=== PATIENT | female | born 1930 | race Caucasian/White ===

== ENCOUNTER 2017-01-10 11:51 | Inpatient (IN) ==
[2017-01-10] MEDS ORDERED: ONDANSETRON 4 MG/2 ML INJECTION IVP ONE (12:21)
[2017-01-10] MEDS ORDERED: KETOROLAC 30 MG/ML INJECTION IVP ONE (12:21)
--- NOTE | 2017-01-10 12:26 | Emergency Department Report ---
Abdominal Pain HPI - General Chief Complaint: Abdominal Pain Stated Complaint: Chest/abd pain Time Seen by Provider: 01/10/17 12:21 Source: patient, EMS, RN notes reviewed, old records reviewed Mode of arrival: EMS Limitations: no limitations - History of Present Illness HPI narrative: 86yo woman presented to the ER by EMS for evaluation of abdominal pain. Pt sent from her alf for c/o epigastric pain that radiated into pts chest beginning at 1130 today. Has not had any N/V/d/c. No diaphoresis. Pt was given norco x1 prior to shipping her to the ER. ?has a h/o abdominal mass. MD complaint: abdominal pain Onset (ago): hour(s) Consistency: constant Location: epigastric Severity: severe Severity scale (1-10): 8 Quality: stabbing, sharp Radiation: chest Migration to: no migration Relieving factors: nothing Exacerbating factors: nothing Associated symptoms: denies other symptoms Treatments prior to arrival: prescription analgesics - Related Data Home Medications Medication Instructions Recorded Confirmed Acetaminophen [Acetaminophen Extra 500 mg PO Q4H PRN 12/16/16 01/10/17 Strength] Acetaminophen [Tylenol Arthritis] 650 mg PO TID 01/10/17 01/10/17 Previous Rx's Medication Instructions Recorded Bisacodyl EC TAB [Dulcolax] 5 mg PO DAILY PRN tab 01/17/17 Bisacodyl Supp [Dulcolax] 10 mg RECTALLY DAILY PRN 01/17/17 suppositor Milk of Magnesia [Mom] 30 ml PO DAILY PRN udc 01/17/17 Allergies Allergy/AdvReac Type Severity Reaction Status Date / Time No Known Allergies Allergy Verified 01/10/17 12:25 Review of Systems All systems: reviewed and negative except as stated Gastrointestinal: Reports: as per HPI, abdominal pain. Denies: nausea, vomiting , diarrhea, constipation, hematemesis, melena, hematochezia [facility] Patient Stated Medical History Other HEENT Yes: WEARS GLASSES Cardiac Arrhythmia Yes: AFIB Congestive Heart Failure Yes Hypertension Yes Valvular Heart Disease Yes Diabetes Mellitus Type 2 Yes Other Reproductive Yes: UTERINE MASS Clinic Medical History Chronic female pelvic pain (Inactive Medical) Surgical History: Denied by patient. - Social History Smoking status: Former smoker Physical Exam - Limitations Limitations: no limitations - General General appearance: alert, in no apparent distress - Normal Exams: Head:: Normocephalic without trauma Eyes:: Pupils are PERRLA w/ EOMI, No scleral icterus, irritation, or foreign bodies noted ENMT:: No facial trauma, nasal exudates, pharyngeal erythema, or exudates are noted Neck:: Full range of motion, without adenopathy Chest/Respirations:: Clear all fernandez, with good airflow, and symmetry bilaterally Cardiovascular:: Regular rate and rhythm, without murmur or gallop, Pulses 2+ all extremities, capillary refill, <2 seconds all extremities Lymphatic:: No lymphadenopathy Musculoskeletal:: No tenderness, or deformity noted, good range of motion Integumentary:: No rashes, hives, or bruising noted Neurological:: Patient is alert, and oriented, cranial nerves, motor/sensory/ cerebellar, exams w/o gross deficits Psychiatric:: Patient exhibits, appropriate attention - Abdominal Exam Abdominal exam: Present: soft, tenderness, normal bowel sounds. Absent: distention, guarding, rebound, rigidity, psoas sign, obturator sign, heel tap sign, Terrazas's sign, Rovsing's sign, tenderness at McBurney's Point, hernia Abdominal tenderness: Present: epigastrium, severe Course - Consultations Consultation #1: Hospitalist: Will admit for further eval/treatment. Requests 30ml/Kg bolus for sepsis. Time: 13:45 Abdominal Pain - [facility] Narrative Medical decision making narrative: Pt with numerous findings on CT abd/pelv and markers for sepsis. Contacted hospitalist for admission for further evaluation and referrals as indicated. - Differential Diagnosis Differential diagnosis: Likely: abdominal pain, calculus of kidney, constipation , diverticulitis, gastroenteritis, pancreatitis, small bowel obstruction - Medical Records Attestation: I reviewed the patient's medical records. - Lab Data Attestation: I reviewed the patient's lab results. Result diagrams: 01/16/17 04:10 01/16/17 04:10 - Radiology Data Attestation: I reviewed the patient's radiology results. CT abd/pelv: FINDINGS: Lower thorax: Bilateral pleural effusions are seen moderate on left small right. Bilateral lower lobe infiltrates are seen consistent with atelectasis. There is a small nodule noted within the left lower lobe measuring 3 mm on image #4 of series 3. ABDOMEN: Liver: Unremarkable. No mass. Gallbladder and bile ducts: Small stones or sludge are noted within the gallbladder. No ductal dilation. Pancreas: Unremarkable. No mass. No ductal dilation. Spleen: Unremarkable. No splenomegaly. Adrenals: Unremarkable. No mass. Kidneys and ureters: Unremarkable. No solid mass. No hydronephrosis. Stomach and bowel: Unremarkable. No obstruction. No mucosal thickening. Appendix: No findings to suggest acute appendicitis. Within PELVIS: Bladder: Unremarkable. No mass. Reproductive: There is a large mass noted within the pelvis in the area of the uterus this measuring 125 x 134 mm in the axial plane. This likely is a large fibroid uterus however, an ovarian neoplastic process cannot be excluded. In the cervix there is a large mass very heterogeneous measuring 80 x 60 mm. This is suspicious for cervical neoplasm. ABDOMEN and PELVIS: Intraperitoneal space: There is diffuse ascites in the abdomen and pelvis possibly due to the cervical mass that will be discussed below.. No free air. Bones/joints: No acute fracture. No dislocation. Soft tissues: Diffuse soft tissue edema is identified. Vasculature: Unremarkable. No abdominal aortic aneurysm. Lymph nodes: Unremarkable. No enlarged lymph nodes. IMPRESSION: Cervical mass and uterine mass. Ascites. Bilateral pleural effusions. Small left lower lobe nodule. Sludge or small stones in the gallbladder Disposition Clinical Impression: Cervical mass, Uterine mass Sepsis Qualifiers: Sepsis type: sepsis due to unspecified organism Qualified Code(s): A41.9 - Sepsis, unspecified organism Disposition: To [facility] Acute Care Condition: Stable Time of Disposition: 14:05 - Seen By: physician
[2017-01-10] MEDS: SALINE FLUSH 10ml SYRINGE IVF PRN (12:43)
[2017-01-10] MEDS ORDERED: SALINE FLUSH 10ml SYRINGE IVF PRN (12:48)
[2017-01-10] MEDS ORDERED: LEVOFLOXACIN PB 750 MG/150 ML BAG IV ONE (12:48)
[2017-01-10] MEDS ORDERED: IOHEXOL 300mg/ml 100ml INJECTION ONE (12:59)
[2017-01-10] MEDS ORDERED: SALINE FLUSH 10ml SYRINGE ONE (13:00)
[2017-01-10] MEDS ORDERED: NS 100 ML ONE (13:00)
[2017-01-10] MEDS ORDERED: NS 2,000 ML IV ONE (13:58)
[2017-01-10] MEDS ORDERED: VANCOMYCIN - PHARMACY CONSULT MC ONE (14:11)
--- NOTE | 2017-01-10 15:05 | History & Physical Report ---
History of Present Illness Date: 01/10/17 Chief complaint: Abdominal pain HPI: Anel Salas is a [facility] 86-year-old woman known to have CAD s/p recent cardiac cath when inpatient at [facility] with diffuse CAD noted and plans for future intervention, valvular heart disease s/p porcine aortic valve, afib, diastolic heart failure with recent exacerbation requiring aggressive inpatient diuresis at [facility] from 12/26-01.01 as well as a known uterine mass undergoing w/u with Dr. Elsa Sood. The patient is a very poor historian due to significant hearing loss and confusion. She is able to answer simple questions for me but cannot provide much history. I did extensively review her available records in the [facility] system from her recent admission. Per patient report, she has not yet had a biopsy done on her uterine mass although that is planned in the near future. She was brought in by EMS for acute onset of severe abdominal pain around 1130 am. She is feeling better now although still has some epigastric tenderness. She denies vomiting but did have some nausea. She has been residing at [facility] for U care since 01/01 when she discharged from [facility]. Her initial labs demonstrate a normal WBC but procalcitonin is elevated at 4.99 and despite stable hemodynamics her lactic acid returned at 4.1. Of note, she is diabetic and has been on metformin. She received a dose of IV levaquin in the ED as well as 500 cc saline bolus. She states her breathing has been stable since leaving the hospital, she has been eating and drinking normally. She denies chest pain, dyspnea, fevers, chills although when she exerts herself she does become dyspneic. [facility] records reviewed from recent admission and cardiac cath 12/30/2016 Catheterization Left Heart with Coronary Post-Op Diagnosis: MARIA VICTORIA Primary Surgeon: Wai Gutiérrez MD (Surgeon - Primary) Spanish Medical Interpreter: Hannah Estimated Blood Loss: minimal Specimens: none Findings: 1- mod/sev mid LAD disease 2- severe mid diagonal disease 3- severe prox LPDA disease 4- severe prox OM1 disease 5 - EF 65% 6- mean gradient through AV 20mm Hg Review of Systems - Constitutional Constitutional: Present: anorexia, fatigue, weakness. Absent: fever(s), headache(s), night sweats - EENMT Eyes: Absent: blurry vision, change in vision Ears: Present: other (hard of hearing ) Balance: Absent: vertigo, ataxia Nose: Absent: change in smell, pain Mouth/Throat: Absent: sore throat, changes in swallowing - Cardiovascular Cardiovascular: Present: dyspnea on exertion. Absent: chest pain, palpitations , syncope Rhythm: Present: regular rhythm Vascular: Present: pedal edema (trace with chronic venous stasis changes BLE) - Respiratory Respiratory: Present: dyspnea, dyspnea on exertion. Absent: hemoptysis - Gastrointestinal Gastrointestinal: Present: abdominal pain (epigastric primarily, improved currently ). Absent: change in bowel habits, change in stool character, constipation - Musculoskeletal Musculoskeletal: Absent: joint swelling, myalgias - Integumentary/Breasts Integumentary: Absent: alopecia, changing lesions - Neurological Neurological: Absent: abnormal movements, abnormal speech, dizziness, focal weakness - Psychiatric Psychiatric: Absent: anxiety, depression - Endocrine Endocrine: Absent: cold intolerance, heat intolerance, palpitations - Hematologic/Lymphatic Hematologic/Lymphatic: Absent: easy bleeding, easy bruising - Allergic/Immunologic Allergic/Immunologic: Absent: tongue swelling, itchy eyes, seasonal rhinorrhea [facility] Clinic Medical History CAD s/p CABG x 1 (SVG to RCA) Rheumatic valvular HD s/p tissue AVR (follows with Dr. Gutiérrez for cardiology care) Diastolic HF Atrial fibrillation Uterine mass Hypertension Dyslipidemia DMII on metformin chronically Iron Deficiency anemia Surgical History: CABG x1, tissue AVR Family History: Multiple siblings and parents with CAD. No history of malignancy she is aware of. - Social History Smoking status: Former smoker (remote, mild use) Substance use type: does not use Alcohol intake frequency: does not drink Housing: other (admitted from [facility]) Medications Home Medications Medication Instructions Recorded Confirmed Type Acetaminophen [Acetaminophen Extra 500 mg PO Q4H PRN 12/16/16 01/10/17 History Strength] Ferrous Sulfate [Iron] 325 mg PO BID 12/16/16 01/10/17 History Metformin [Glucophage] 500 mg PO HS 12/16/16 01/10/17 History Metoprolol Tartrate [Lopressor] 50 mg PO BID 12/16/16 01/10/17 History Acetaminophen [Tylenol Arthritis] 650 mg PO TID 01/10/17 01/10/17 History Aspirin 325 mg PO DAILY 01/10/17 01/10/17 History Furosemide [Lasix] 40 mg PO BID 01/10/17 01/10/17 History Hydrocodone/APAP 5/325 [[place] 1 tab PO Q8H PRN 01/10/17 01/10/17 History 5/325] Loperamide [Imodium] 2 mg PO TID PRN 01/10/17 01/10/17 History Metformin [Glucophage] 1,000 mg PO DAILY 01/10/17 01/10/17 History Potassium Chloride 10 meq PO BID 01/10/17 01/10/17 History Pravastatin [Pravachol] 20 mg PO DAILY 01/10/17 01/10/17 History Allergies Allergy/AdvReac Type Severity Reaction Status Date / Time No Known Allergies Allergy Verified 01/10/17 12:25 Exam Vital Signs: Pulse Rate 98 01/10/17 14:15 Respiratory Rate 16 01/10/17 14:15 Blood Pressure 110/59 01/10/17 14:47 Pulse Oximetry 95 01/10/17 14:15 Telemetry Rhythm: Sinus Rhythm - Constitutional Present: no acute distress, well nourished, well developed, cooperative - Routine HEENT Exam Head: Present: normocephalic, atraumatic. Absent: abrasion, laceration Eye: Present: EOMI, PERRL ENT: Present: mucous membranes moist, oropharynx clear - Routine Neck Exam Present: supple. Absent: JVD, carotid bruit - Routine Chest/Breast/Axilla Exam Chest wall: Absent: tenderness - Routine Respiratory Exam Present: CTA bilaterally, diminished air movement. Absent: wheezes, crackles - Routine Cardiovascular Exam Present: RRR, murmur (BRISSA heard best at the right carotid ) - Routine Abdominal Exam Present: soft, normoactive bowel sounds, tenderness (mild epigastric tenderness without rebound, guarding, rigidity), distended - Routine Extremities Exam Present: edema (trace BLE), pulses intact, normal capillary refill. Absent: clubbing - Routine Back/Spine/Pelvis Exam Back/Spine: Present: erythema (with chronic venous stasis changes ) - Routine Skin Exam Present: dry, warm. Absent: rash - Routine Neurological Exam Present: alert, normal speech. Absent: tremors, asterixis - Routine Psychiatric Exam Present: normal affect, cooperative Results - Labs CBC & Chem 7: 01/10/17 12:33 01/10/17 12:33 Labs: Procalcitonin 4.99 Lactic acid 4.1 Troponin ordered and pending Microbiology Results: Blood cultures drawn and pending. - Imaging and Cardiology CT scan - abdomen Additional comments: Cervical/uterine mass noted as well as small pulmonary nodule GB sludging Ascites Bilateral pleural effusions Full radiology report pending at this time. Assessment and Plan (1) Sepsis Problem details: of unclear etiology, ? HCAP versus possible GB etiology Current visit: Yes Status: Acute (2) Abdominal pain Problem details: acute, improved with supportive care, epigastric, ? relation to uterine mass versus GB etiology Current visit: Yes Status: Acute (3) Diastolic heart failure due to valvular disease Current visit: Yes Status: Acute (4) Cervical mass Problem details: Pending further evaluation with Dr. Elsa Sood Current visit: Yes Status: Acute (5) Uterine mass Problem details: Pending further evaluation with Dr. Elsa Sood Current visit: Yes Status: Acute (6) CAD (coronary artery disease) Current visit: Yes Status: Chronic (7) H/O aortic valve replacement with porcine valve Current visit: Yes Status: Chronic (8) Chronic a-fib Problem details: On ASA 325 mg and rate controlled Current visit: Yes Status: Chronic (9) Diabetes mellitus Problem details: Managed on metformin OP Current visit: Yes Status: Chronic Assessment and Plan: Assessment: Sepsis of unclear etiology; hemodynamics are stable but lactic acid 4.1, procalcitonin grossly elevated At risk for HCAP with recent inpatient admission at [facility] Acute abdominal pain, improved in ED, unclear if related to GB pathology versus uterine/cervical mass Known CAD with recent cardiac cath 12/[address] Gutiérrez Diastolic HF with recent decompensation requiring IV diuresis when admitted in [facility] at [facility] Valvular HD with porcine AVR Chronic afib, on ASA 325 mg and rate controlled Uterine/cervical mass recently diagnosed pending biopsy and further w/u with Dr. Sood Plan/Recommendations: Admit to medical floor with telemetry Hold further IVF after 500 cc bolus unless hypotensive Check troponin to ensure no occult cardiac cause of her presentation Broaden antibiotics to vancomycin/zosyn Continue home medications including cardiac medications and diuretics given recent decompensated HF Await final read on CTAP May need to involve Dr. Sood during her inpatient stay for further evaluation of uterine/cervical mass RUQ ultrasound to furthe evaluation GB pathology Add hepatic panel to labs for surveillance Renal panel, CBC, Mg with AM labs Serial lactic acid for monitoring Will return her care to Dr. Angel, PCP, after her hospitalization. DVT Prophylaxis: Lovenox GI Prophylaxis: Pepcid Resuscitation Status: Full Code Sepsis Assessment - Evaluation SIRS Criteria: acute mental status change, pulse > or equal to 90 beats/minute Severe Sepsis: lactate > or equal to 2.0 mg/dl Septic Shock: Lactate > 4 mg/dL Hospital Course Summary Disclaimer: The visit summary below is not to be considered part of the above Progress Note. Hospital Course: 01/10/17 15:35 Assessment: Sepsis of unclear etiology; hemodynamics are stable but lactic acid 4.1, procalcitonin grossly elevated At risk for HCAP with recent inpatient admission at [facility] Acute abdominal pain, improved in ED, unclear if related to GB pathology versus uterine/cervical mass Known CAD with recent cardiac cath 12/[address] Gutiérrez Diastolic HF with recent decompensation requiring IV diuresis when admitted in [facility] at [facility] Valvular HD with porcine AVR Chronic afib, on ASA 325 mg and rate controlled Uterine/cervical mass recently diagnosed pending biopsy and further w/u with Dr. Sood Plan/Recommendations: Admit to medical floor with telemetry Hold further IVF after 500 cc bolus unless hypotensive Check troponin to ensure no occult cardiac cause of her presentation Broaden antibiotics to vancomycin/zosyn Continue home medications including cardiac medications and diuretics given recent decompensated HF Await final read on CTAP May need to involve Dr. Sood during her inpatient stay for further evaluation of uterine/cervical mass RUQ ultrasound to furthe evaluation GB pathology Add hepatic panel to labs for surveillance Renal panel, CBC, Mg with AM labs Serial lactic acid for monitoring Will return her care to Dr. Angel, PCP, after her hospitalization.
[2017-01-10] MEDS ORDERED: Bisacodyl EC TAB 5 MG TABLET PO PRN (15:40)
[2017-01-10] MEDS ORDERED: MORPHINE SULFATE 4mg INJECTION IVP PRN (15:40)
[2017-01-10] MEDS: NS 1,000 ML IV SCH ×2 (16:35→16:48)
[2017-01-10] MEDS: CEFEPIME 1 GM in NS 100 ML IV SCH ×2 (17:18→22:37)
[2017-01-10] MEDS: ENOXAPARIN 40 MG/0.4 ML INJECTION SQ SCH (21:11)
[2017-01-11] MEDS: ACETAMINOPHEN 325 MG TABLET PO PRN (01:55)
[2017-01-11] MEDS: CEFEPIME 1 GM in NS 100 ML IV SCH ×3 (03:42→20:32)
[2017-01-11] MEDS: NS 1,000 ML IV SCH (04:38)
[2017-01-11] MEDS ORDERED: FUROSEMIDE 20 MG/2 ML INJECTION IVP ONE ×2 (05:48→11:00)
[2017-01-11] MEDS ORDERED: MAGNESIUM SULFATE 1gm PREMIX 1 GM/100 ML BAG IV SCH (07:49)
[2017-01-11] MEDS: ONDANSETRON 4 MG/2 ML INJECTION IVP PRN (08:19)
[2017-01-11] MEDS: FERROUS SULFATE 324 MG TABLET PO SCH ×2 (08:43→17:50)
[2017-01-11] MEDS: ASPIRIN 325 MG TABLET PO SCH (08:43)
[2017-01-11] MEDS: ENOXAPARIN 40 MG/0.4 ML INJECTION SQ SCH (08:43)
[2017-01-11] MEDS: MAGNESIUM SULFATE 1gm PREMIX 1 GM/100 ML BAG IV SCH ×2 (08:51→13:16)
--- NOTE | 2017-01-11 09:24 | XRay Report ---
Indication: acute onset dyspnea PROCEDURE: XR chest 1V: Encounter: Initial Comparison: None Findings: Patchy airspace disease in both lower lobes. Pulmonary vascular prominence with small effusions. No pneumothorax. Cardiac silhouette is moderately enlarged. Pulmonary vascularity is congested. Prior sternotomy. Impression: Moderate pulmonary edema, possibly due to CHF. Underlying pneumonia, aspiration or atelectasis cannot be excluded in the lung bases. There is a preliminary report by [facility]. .
--- NOTE | 2017-01-11 09:29 | Pharmacy Consult-Antibiotics ---
Pharmacy Consult-Vancomycin - Laboratory Information WBC 9.3 T/MM3 (4.5-11.0) 01/11/17 04:13 BUN 34.0 MG/DL (7-17) H 01/11/17 04:13 Creatinine 1.0 MG/DL (0.7-1.2) 01/11/17 04:13 Procalcitonin 4.99 NG/ML H* 01/10/17 12:33 - Consult Information VANCOMYCIN CONSULT: Dx: Sepsis of unclear etiology, ? HCAP versus possible GB etiology Current Renal Fx: S Cr = 1.0 *mg/dl. Estimated Cr Cl ~ 40 mL.min. I will change the Vancomycin from 1,250 mg iv 1.000 mg IV q18hrs to obtain a trough between 15-20 mcg.mL. The pharmacy sill continue to monitor and adjust regimen to maintain therapeutic levels. Thank you for the Vancomycin Protocol, Julio Cesar Kumar, Pharmacist. .
--- NOTE | 2017-01-11 10:16 | CT Scan Report ---
Indication: Abd pain with hypoactive BS PROCEDURE: CT abdomen pelvis w con: Encounter: Initial Comparison: None Technique: Axial CT images were performed through the abdomen and pelvis after the administration of intravenous contrast. Coronal and sagittal two-dimensional reformats. Automated Exposure Control and Iterative Reconstruction dose reducing techniques were utilized. Contrast: Omnipaque 300 89 mL Findings: Small bilateral pleural effusions. 7 mm subpleural right middle lobe pulmonary nodule. Heart is enlarged. Subcutaneous edema. Liver is fatty infiltrated. Moderate ascites. The gallbladder is shows a small amount of sludge. The spleen, pancreas and adrenal glands are within normal limits. The kidneys are normal. Bladder is grossly normal. There is a irregular heterogeneously enhancing mass occupying the majority of the pelvis. This appears to arise from the uterus. This measures approximately 13 x 11 x 13 cm in size. There is also an extension of this mass or a separate mass in the area of the cervix seen on axial image #80 measuring 5.8 cm in diameter. No evidence of a bowel obstruction. No obvious omental thickening or nodularity. There are scattered small retroperitoneal nodes present. Bone windows show a 1 cm lytic lesion in the T7 vertebra centrally. Diffuse subcutaneous edema consistent with anasarca. Impression: 1. Large heterogeneous pelvic mass or masses suspicious for carcinoma that could be arising from the uterus, endometrium or cervix. Ovarian malignancy is also possible. There is diffuse ascites raising concern for peritoneal metastatic disease. There is also a pulmonary nodule and bone lesion that could represent other sites of metastatic disease. Oncology evaluation is recommended. 2. Anasarca There is a preliminary report by [facility]. .
[2017-01-11] MEDS: INSULIN ASPART 100unit/ml INJECTION SQ PRN ×2 (10:53→18:15)
--- NOTE | 2017-01-11 11:40 | Progress Note ---
- Date 01/11/17 Subjective: Desaturations overnight after IVF for sepsis protocol. Improved after a dose of IV lasix. Lactic acid slowly clearing. RUQ ultrasound still pending but abdominal pain has resolved this AM. Afebrile overnight. Very hard of hearing and doesn't have her hearing aid batteries but denies pain , fevers, chills, dyspnea currently. Objective Vital signs: Temperature 96.0 F L 01/11/17 08:30 Pulse Rate 108 H 01/11/17 08:30 Respiratory Rate 13 01/11/17 08:30 Blood Pressure 147/69 H 01/11/17 08:30 Pulse Oximetry 97 01/11/17 08:30 Rhythm: Atrial Fibrillation with Normal Ventricular Rate Height/Weight/BMI: Height 1.63 m Weight 72.3 kg Body Mass Index 26.5 - Constitutional Present: no acute distress - Routine HEENT Exam Head: Present: normocephalic, atraumatic Eye: Present: EOMI, PERRL ENT: Present: mucous membranes moist, oropharynx clear - Routine Respiratory Exam Present: decreased breath sounds, crackles (right base), diminished air movement (primarily at bases). Absent: accessory muscle use - Routine Cardiovascular Exam Present: RRR, murmur (BRISSA) - Routine Abdominal Exam Present: soft, non tender, distended. Absent: rebound, guarding, rigid - Routine Extremities Exam Present: edema (trace BLE), pulses intact, normal capillary refill - Routine Skin Exam Present: dry, warm. Absent: rash - Routine Neurological Exam Present: alert, normal speech Results - Labs CBC & Chem 7: 01/11/17 04:13 01/11/17 04:13 - ABG Interpretation ABG results: 01/11/17 06:05 ABG pH 7.350 ABG pCO2 41 ABG pO2 72 L ABG HCO3 23 ABG Total CO2 23.9 ABG O2 Saturation 93.0 L ABG Base Excess -2.9 L - ECG Data Tracing #2 I reviewed this ECG and interpreted as documented below: Arrhythmias present: afib/aflutter (with RVR ) - Imaging and Cardiology Chest x-ray Status: image reviewed by me Additional comments: Date of Exam: 01/11/17 Ordering Provider: Best Whitney MD Type of Exam(s): XR chest 1V Reason for Exam(s): acute onset dyspnea Indication: acute onset dyspnea PROCEDURE: XR chest 1V: Encounter: Initial Comparison: None Findings: Patchy airspace disease in both lower lobes. Pulmonary vascular prominence with small effusions. No pneumothorax. Cardiac silhouette is moderately enlarged. Pulmonary vascularity is congested. Prior sternotomy. Impression: Moderate pulmonary edema, possibly due to CHF. Underlying pneumonia, aspiration or atelectasis cannot be excluded in the lung bases. There is a preliminary report by virtual radiologic. Assessment and Plan (1) Sepsis Problem details: of unclear etiology, ? HCAP versus possible GB etiology Current visit: Yes Status: Acute (2) Abdominal pain Problem details: acute, improved with supportive care, epigastric, ? relation to uterine mass versus GB etiology Current visit: Yes Status: Acute (3) Diastolic heart failure due to valvular disease Current visit: Yes Status: Acute (4) Cervical mass Problem details: Pending further evaluation with Dr. Elsa Sood Current visit: Yes Status: Acute (5) Uterine mass Problem details: Pending further evaluation with Dr. Elsa Sood Current visit: Yes Status: Acute (6) CAD (coronary artery disease) Current visit: Yes Status: Chronic (7) H/O aortic valve replacement with porcine valve Current visit: Yes Status: Chronic (8) Chronic a-fib Problem details: On ASA 325 mg and rate controlled Current visit: Yes Status: Chronic (9) Diabetes mellitus Problem details: Managed on metformin OP Current visit: Yes Status: Chronic Assessment and Plan: Assessment: Sepsis of unclear etiology; lactic acid 4.1, procalcitonin grossly elevated at admission At risk for HCAP with recent inpatient admission at [facility]; no imaging evidence of infiltrate however Acute abdominal pain, improved in ED, unclear if related to GB pathology versus uterine/cervical mass --> may have occult GI infection; blood cultures still pending as is urine culture Known CAD with recent cardiac cath 12/[address] Gutiérrez --> troponin negative on admission and this AM Diastolic HF with recent decompensation requiring IV diuresis when admitted in [place] at [facility] --> recurrent decompensation overnight 01/10 after modest fluid for sepsis with desaturation, CXR with pulm edema Valvular HD with porcine AVR Chronic afib, on ASA 325 mg and rate controlled typically Uterine/cervical mass recently diagnosed pending biopsy and further w/u with Dr. Sood Plan/Recommendations: Continue telemetry today Hold further IVF today and monitor lactic acid levels; trending down, ? metformin versus poor hepatic clearance Await RUQ ultrasound results for further evaluation of liver and GB Hold vanco and levaquin and continue zosyn today for intra-abdominal coverage; no evidence of HCAP on imaging Continue home medications including cardiac medications and diuretics given recent decompensated HF --> will give an additional 20 mg IV lasix today at noon for further diuresis Monitor strict I/Os and daily weight s May need to involve Dr. Sood during her inpatient stay for further evaluation of uterine/cervical mass Renal panel, CBC, Mg with AM labs Discussed with bedside RN. Hospital Course Summary Disclaimer: The visit summary below is not to be considered part of the above Progress Note. Hospital Course: 01/10/17 15:35 [place]--Admission Assessment: Sepsis of unclear etiology; hemodynamics are stable but lactic acid 4.1, procalcitonin grossly elevated At risk for HCAP with recent inpatient admission at [facility] Acute abdominal pain, improved in ED, unclear if related to GB pathology versus uterine/cervical mass Known CAD with recent cardiac cath 12/[address] Gutiérrez Diastolic HF with recent decompensation requiring IV diuresis when admitted in [place] at [facility] Valvular HD with porcine AVR Chronic afib, on ASA 325 mg and rate controlled Uterine/cervical mass recently diagnosed pending biopsy and further w/u with Dr. Sood Plan/Recommendations: Admit to medical floor with telemetry Hold further IVF after 500 cc bolus unless hypotensive Check troponin to ensure no occult cardiac cause of her presentation Broaden antibiotics to vancomycin/zosyn Continue home medications including cardiac medications and diuretics given recent decompensated HF Await final read on CTAP May need to involve Dr. Sood during her inpatient stay for further evaluation of uterine/cervical mass RUQ ultrasound to furthe evaluation GB pathology Add hepatic panel to labs for surveillance Renal panel, CBC, Mg with AM labs Serial lactic acid for monitoring Will return her care to Dr. Angel, PCP, after her hospitalization. 01/11/17 11:46 [place] Continue telemetry today Hold further IVF today and monitor lactic acid levels; trending down, ? metformin versus poor hepatic clearance Await RUQ ultrasound results for further evaluation of liver and GB Hold vanco and levaquin and continue zosyn today for intra-abdominal coverage; no evidence of HCAP on imaging Continue home medications including cardiac medications and diuretics given recent decompensated HF --> will give an additional 20 mg IV lasix today at noon for further diuresis Monitor strict I/Os and daily weight s May need to involve Dr. Sood during her inpatient stay for further evaluation of uterine/cervical mass Renal panel, CBC, Mg with AM labs
[2017-01-11] MEDS: HYDROCODONE/APAP 5mg/325mg TABLET PO PRN ×2 (12:32→23:19)
[2017-01-11] MEDS: PRAVASTATIN 20 MG TABLET PO SCH (20:34)
[2017-01-12] MEDS: CEFEPIME 1 GM in NS 100 ML IV SCH ×3 (04:18→20:09)
[2017-01-12] MEDS: ACETAMINOPHEN 325 MG TABLET PO PRN ×2 (04:59→20:09)
[2017-01-12] MEDS: ASPIRIN 325 MG TABLET PO SCH (08:24)
[2017-01-12] MEDS: ENOXAPARIN 40 MG/0.4 ML INJECTION SQ SCH (08:24)
[2017-01-12] MEDS: FERROUS SULFATE 324 MG TABLET PO SCH ×2 (08:25→17:31)
[2017-01-12] MEDS: POLYETHYL GLYCOL 3350 17gm PACKET PO SCH (08:38)
--- NOTE | 2017-01-12 08:42 | Progress Note ---
<Maria Luisa Penn V - Last Filed: 01/12/17 08:37> - Date 01/12/17 Subjective: Mrs Salas is seen today in follow up while eating breakfast. She is currently on 3 liters of oxygen and denies feeling short of breath. Denies having pain in her chest pain or abdomen on exam. Afebrile, vital signs normal. Objective Vital signs: Temperature 96.3 F L 01/12/17 08:09 Pulse Rate 76 01/12/17 08:09 Respiratory Rate 14 01/12/17 08:09 Blood Pressure 121/69 01/12/17 08:09 Pulse Oximetry 93 01/12/17 08:09 Height/Weight/BMI: Height 1.63 m Weight 72.3 kg Body Mass Index 26.5 - Constitutional Present: no acute distress, well nourished, well developed - Routine HEENT Exam Eye: Present: EOMI ENT: Present: mucous membranes moist, dentition normal - Routine Respiratory Exam Absent: wheezes Comments: Crackles in bilateral bases posteriorly - Routine Cardiovascular Exam Present: RRR, S1, S2, murmur - Routine Abdominal Exam Present: soft, normoactive bowel sounds, non distended. Absent: tenderness - Routine Extremities Exam Present: full ROM - Routine Skin Exam Present: intact, dry, warm - Routine Neurological Exam Present: alert, oriented X3, CN II-XII intact, moving all extremities - Routine Lymphatic Exam Lymphatic: Absent: adenopathy - Routine Psychiatric Exam Present: normal affect, cooperative Results - Labs CBC & Chem 7: 01/12/17 03:56 01/12/17 03:56 - ABG Interpretation ABG results: 01/11/17 06:05 ABG pH 7.350 ABG pCO2 41 ABG pO2 72 L ABG HCO3 23 ABG Total CO2 23.9 ABG O2 Saturation 93.0 L ABG Base Excess -2.9 L Assessment and Plan (1) Cervical mass Current visit: Yes Status: Acute (2) Uterine mass Problem details: Pending further evaluation with Dr. Elsa Sood Current visit: Yes Status: Acute (3) Diastolic heart failure due to valvular disease Current visit: Yes Status: Acute (4) CAD (coronary artery disease) Current visit: Yes Status: Chronic (5) H/O aortic valve replacement with porcine valve Current visit: Yes Status: Chronic (6) Chronic a-fib Problem details: On ASA 325 mg and rate controlled Current visit: Yes Status: Chronic (7) Diabetes mellitus Problem details: Managed on metformin OP Current visit: Yes Status: Chronic (8) Sepsis Problem details: of unclear etiology, ? HCAP versus possible GB etiology Current visit: Yes Status: Acute (9) Abdominal pain Problem details: acute, improved with supportive care, epigastric, ? relation to uterine mass versus GB etiology Current visit: Yes Status: Acute Assessment and Plan: Assessment: Sepsis of unclear etiology; lactic acid 4.1, procalcitonin grossly elevated at admission At risk for HCAP with recent inpatient admission at [facility]; no imaging evidence of infiltrate however Acute abdominal pain, improved in ED, unclear if related to GB pathology versus uterine/cervical mass --> may have occult GI infection; blood cultures still pending as is urine culture Known CAD with recent cardiac cath 12/[address] Gutiérrez --> troponin negative on admission and this AM Diastolic HF with recent decompensation requiring IV diuresis when admitted in [place] at [facility] --> recurrent decompensation overnight 01/10 after modest fluid for sepsis with desaturation, CXR with pulm edema Valvular HD with porcine AVR Chronic afib, on ASA 325 mg and rate controlled typically Uterine/cervical mass recently diagnosed pending biopsy and further w/u with Dr. Sood Plan Awaiting Abdominal sonogram results for further evaluation. Continue on Zosyn IV for intra-abdominal coverage. Lactate has trended to normal. Was given a one-time dose of Lasix IV yesterday. Given crackles and increased weight, will give another one time dose today. Hyperkalemia noted on labs, although specimen was hemolyzed. We will follow. Hgb decreased to 7.8. Dr Sood was consulted for evaluation of pelvic mass however she does not have [place]ile[place] [facility] Will discuss with attending, consult -vs- Outpt follow up. Add Miralax and MOM for bowel motivation Will discuss further with attending Hospital Course Summary Disclaimer: The visit summary below is not to be considered part of the above Progress Note. Hospital Course: 01/10/17 15:35 [place]--Admission Assessment: Sepsis of unclear etiology; hemodynamics are stable but lactic acid 4.1, procalcitonin grossly elevated At risk for HCAP with recent inpatient admission at [facility] Acute abdominal pain, improved in ED, unclear if related to GB pathology versus uterine/cervical mass Known CAD with recent cardiac cath 12/[address] Gutiérrez Diastolic HF with recent decompensation requiring IV diuresis when admitted in [place] at [facility] Valvular HD with porcine AVR Chronic afib, on ASA 325 mg and rate controlled Uterine/cervical mass recently diagnosed pending biopsy and further w/u with Dr. Sood Plan/Recommendations: Admit to medical floor with telemetry Hold further IVF after 500 cc bolus unless hypotensive Check troponin to ensure no occult cardiac cause of her presentation Broaden antibiotics to vancomycin/zosyn Continue home medications including cardiac medications and diuretics given recent decompensated HF Await final read on CTAP May need to involve Dr. Sood during her inpatient stay for further evaluation of uterine/cervical mass RUQ ultrasound to furthe evaluation GB pathology Add hepatic panel to labs for surveillance Renal panel, CBC, Mg with AM labs Serial lactic acid for monitoring Will return her care to Dr. Angel, PCP, after her hospitalization. 01/11/17 11:46 [place] Continue telemetry today Hold further IVF today and monitor lactic acid levels; trending down, ? metformin versus poor hepatic clearance Await RUQ ultrasound results for further evaluation of liver and GB Hold vanco and levaquin and continue zosyn today for intra-abdominal coverage; no evidence of HCAP on imaging Continue home medications including cardiac medications and diuretics given recent decompensated HF --> will give an additional 20 mg IV lasix today at noon for further diuresis Monitor strict I/Os and daily weight s May need to involve Dr. Sood during her inpatient stay for further evaluation of uterine/cervical mass Renal panel, CBC, Mg with AM labs 01/12/17 Plan Awaiting Abdominal sonogram results for further evaluation. Continue on Zosyn IV for intra-abdominal coverage. Lactate has trended to normal. Was given a one-time dose of Lasix IV yesterday. Given crackles and increased weight, will give another one time dose today. Hyperkalemia noted on labs, although specimen was hemolyzed. We will follow. Hgb decreased to 7.8. Dr Sood was consulted for evaluation of pelvic mass however she does not have Privileges [place] [facility] Will discuss with attending, consult -vs- Outpt follow up. Add Miralax and MOM for bowel motivation Will discuss further with attending <Flower Hou - Last Filed: 01/12/17 17:09> - Date 01/12/17 Objective Vital signs: Results - Labs CBC & Chem 7: 01/12/17 03:56 01/12/17 03:56 - ABG Interpretation ABG results: Assessment and Plan (1) Abdominal pain Problem details: acute, improved with supportive care, epigastric, ? relation to uterine mass versus GB etiology Current visit: Yes Status: Acute (2) Sepsis Problem details: of unclear etiology, ? HCAP versus possible GB etiology Current visit: Yes Status: Acute (3) Uterine mass Problem details: Pending further evaluation with Dr. Elsa Sood Current visit: Yes Status: Acute (4) Diastolic heart failure due to valvular disease Current visit: Yes Status: Acute Assessment and Plan: I have independently evaluated and examined this patient. I reviewed the chart, the patient's history, and the [employer]/PA's documented findings as above. We discussed and formulated the assessment and plan as above with additions as below: Bilious emesis reported yesterday by nursing that patient maintaining good oral intake today. Oxygen was titrated off yesterday by resumed overnight, currently on 2 L and patient denies dyspnea. She reports abdominal pain is gone and reports that it was terrible when she came in. Daly catheter in place, denies dyspnea or pain at present. Very hard of hearing but NAD Respirations nonlabored, breath sounds clear, no wheezing/rhonchi anteriorly Irregular rhythm Abdomen is obese, soft, bowel sounds present; no tenderness on palpation Gallbladder sonogram reviewed by myself-no evidence of acute cholecystitis although gallstones are present Chest x-ray from yesterday also reviewed-increased vascular markings. Lytic lesion T7 noted on initial CT scan in addition to anasarca and ascites/ pelvic mass. Continue diuresis. Weight up nearly 3 kg from admission-resume home dose furosemide in addition to supplemental doses as needed. PT/OT Etiology of lactic acidosis is unclear, renal function should support use of metformin but cannot exclude metformin induced lactic acidosis. Blood sugars modestly elevated with metformin on hold. Blood cultures negative, no clear indication of acute infection at present. Outpatient follow-up with [facility] [employer] oncology. DVT Prophylaxis: Lovenox Resuscitation Status: Full Code Hospital Course Summary Disclaimer: The visit summary below is not to be considered part of the above Progress Note.
[2017-01-12] MEDS ORDERED: POLYETHYL. GLYCOL 3350 BOTTLE 238 GM PO SCH (09:00)
[2017-01-12] MEDS ORDERED: LEVOFLOXACIN PB 750 MG/150 ML BAG IV SCH (09:00)
--- NOTE | 2017-01-12 10:53 | Ultrasound Report ---
Indication: acute abdominal pain, GB sludging on CTAP PROCEDURE: US abdomen limited: Encounter: Initial Comparison: None. FINDINGS: The gallbladder is thin-walled and nondistended with mobile echogenic gallstones. CBD is normal measuring 4.2 mm. No sonographic Terrazas's sign. The pancreas is largely obscured by bowel gas. Visualized portions of the pancreas are unremarkable. The liver is homogeneous in echotexture without focal abnormality. Color flow Doppler imaging confirms flow within the portal vein is in the appropriate direction.. The IVC is unremarkable. The hepatic veins are patent. There is a small amount of relatively simple appearing ascites. The right kidney is unremarkable measuring 9.5 cm in length. IMPRESSION: Small amount of simple ascites. Cholelithiasis without evidence for cholecystitis. .
[2017-01-12] MEDS: INSULIN ASPART 100unit/ml INJECTION SQ PRN ×2 (11:47→15:40)
[2017-01-12] MEDS ORDERED: FUROSEMIDE 20 MG/2 ML INJECTION IVP ONE (17:08)
[2017-01-12] MEDS: SALINE FLUSH 10ml SYRINGE IVF PRN (17:30)
[2017-01-12] MEDS: PRAVASTATIN 20 MG TABLET PO SCH (20:09)
[2017-01-13] MEDS ORDERED: NS FLUSH BAG 500ml IV PRN (04:13)
[2017-01-13] MEDS: SALINE FLUSH 10ml SYRINGE IVF PRN ×3 (04:34→22:14)
[2017-01-13] MEDS: CEFEPIME 1 GM in NS 100 ML IV SCH ×3 (04:34→20:21)
[2017-01-13] MEDS: FUROSEMIDE 40 MG TABLET PO SCH ×2 (09:18→13:40)
[2017-01-13] MEDS: FERROUS SULFATE 324 MG TABLET PO SCH ×2 (09:18→17:08)
[2017-01-13] MEDS: ENOXAPARIN 40 MG/0.4 ML INJECTION SQ SCH (09:18)
[2017-01-13] MEDS: POLYETHYL GLYCOL 3350 17gm PACKET PO SCH (09:19)
[2017-01-13] MEDS: ASPIRIN 325 MG TABLET PO SCH (09:19)
[2017-01-13] MEDS: ACETAMINOPHEN 325 MG TABLET PO PRN ×2 (11:44→21:27)
[2017-01-13] MEDS: INSULIN ASPART 100unit/ml INJECTION SQ PRN ×4 (12:00→21:28)
--- NOTE | 2017-01-13 14:50 | Progress Note ---
<Angelina Roland - Last Filed: 01/13/17 14:57> - Date 01/13/17 Subjective: Patient seen in follow up today. She reports she is doing better. No CP, SOA, n/v, or abdominal pain. Reports her appetite is "so-so." Overall, doing well with no complaints at the present time. Objective Vital signs: Temperature 97.5 F 01/13/17 08:00 Pulse Rate 90 01/13/17 08:00 Respiratory Rate 18 01/13/17 08:00 Blood Pressure 118/72 01/13/17 08:00 Pulse Oximetry 95 01/13/17 08:00 Rhythm: Atrial Fibrillation with Normal Ventricular Rate Height/Weight/BMI: Height 1.63 m Weight 75 kg Body Mass Index 26.5 - Constitutional Present: well nourished, well developed, obese - Routine Respiratory Exam Present: decreased breath sounds (LLL ), CTA bilaterally. Absent: wheezes - Routine Cardiovascular Exam Present: RRR, murmur - Routine Abdominal Exam Present: normoactive bowel sounds. Absent: tenderness Comments: abdomen is large and firm (likely d/t anasarca) - no tenderness. - Routine Extremities Exam Present: no edema (no edema of feet/ankles), normal capillary refill - Routine Skin Exam Present: dry, warm - Routine Neurological Exam Present: alert, moving all extremities - Routine Lymphatic Exam Lymphatic: Absent: adenopathy - Routine Psychiatric Exam Present: normal affect, cooperative Results - Labs CBC & Chem 7: 01/13/17 05:21 01/13/17 07:12 Labs: Laboratory Tests 01/13/17 05:21 B-Natriuretic Peptide [id number] H Assessment and Plan (1) Uterine mass Problem details: Pending further evaluation with Dr. Elsa Sood Current visit: Yes Status: Acute (2) Diastolic heart failure due to valvular disease Current visit: Yes Status: Acute (3) Sepsis Problem details: of unclear etiology, ? HCAP versus possible GB etiology Current visit: Yes Status: Acute (4) Abdominal pain Problem details: acute, improved with supportive care, epigastric, ? relation to uterine mass versus GB etiology Current visit: Yes Status: Acute Assessment and Plan: Assessment Sepsis of unclear etiology; lactic acid 4.1, procalcitonin grossly elevated at admission Acute abdominal pain, improved in ED, unclear if related to GB pathology versus uterine/cervical mass Known CAD with recent cardiac cath 12/[address] Gutiérrez Diastolic HF --> recurrent decompensation overnight 01/10 after modest fluid for sepsis with desaturation, CXR with pulm edema Valvular HD with porcine AVR Chronic afib, on ASA 325 mg and rate controlled typically Uterine/cervical mass recently diagnosed pending biopsy and further w/u with Dr. Sood Hyperkalemia -POA Plan Potassium is coming down. Her home potassium is on hold. Continues on home Lasix dose of 40 mg BID. Weight is up 5 kg since admission. Creatinine has gradually increased since admission. Defer tx plan to Dr. Hou. Abdominal pain has resolved. No clear etiology for her acute pain was identified. Dr. Hou to talk with family re: her abdominal mass. There apparently has been some confusion on the plan of care. Given her findings on CT, along with her age and cardiac status, she would be a candidate for palliative care. Hospital Course Summary Disclaimer: The visit summary below is not to be considered part of the above Progress Note. Hospital Course: 01/10/17 15:35 [place]--Admission Assessment: Sepsis of unclear etiology; hemodynamics are stable but lactic acid 4.1, procalcitonin grossly elevated At risk for HCAP with recent inpatient admission at [facility] Acute abdominal pain, improved in ED, unclear if related to GB pathology versus uterine/cervical mass Known CAD with recent cardiac cath 12/[address] Gutiérrez Diastolic HF with recent decompensation requiring IV diuresis when admitted in [place] at [facility] Valvular HD with porcine AVR Chronic afib, on ASA 325 mg and rate controlled Uterine/cervical mass recently diagnosed pending biopsy and further w/u with Dr. Sood Plan/Recommendations: Admit to medical floor with telemetry Hold further IVF after 500 cc bolus unless hypotensive Check troponin to ensure no occult cardiac cause of her presentation Broaden antibiotics to vancomycin/zosyn Continue home medications including cardiac medications and diuretics given recent decompensated HF Await final read on CTAP May need to involve Dr. Sood during her inpatient stay for further evaluation of uterine/cervical mass RUQ ultrasound to furthe evaluation GB pathology Add hepatic panel to labs for surveillance Renal panel, CBC, Mg with AM labs Serial lactic acid for monitoring Will return her care to Dr. Angel, PCP, after her hospitalization. 01/11/17 11:46 [place] Continue telemetry today Hold further IVF today and monitor lactic acid levels; trending down, ? metformin versus poor hepatic clearance Await RUQ ultrasound results for further evaluation of liver and GB Hold vanco and levaquin and continue zosyn today for intra-abdominal coverage; no evidence of HCAP on imaging Continue home medications including cardiac medications and diuretics given recent decompensated HF --> will give an additional 20 mg IV lasix today at noon for further diuresis Monitor strict I/Os and daily weight s May need to involve Dr. Sood during her inpatient stay for further evaluation of uterine/cervical mass Renal panel, CBC, Mg with AM labs 01/12/17 Awaiting Abdominal sonogram results for further evaluation. Continue on Zosyn IV for intra-abdominal coverage. Lactate has trended to normal. Was given a one-time dose of Lasix IV yesterday. Given crackles and increased weight, will give another one time dose today. Hyperkalemia noted on labs, although specimen was hemolyzed. We will follow. Hgb decreased to 7.8. Dr Sood was consulted for evaluation of pelvic mass however she does not have Privileges at [facility]. Will discuss with attending, consult -vs- Outpt follow up. Add Miralax and MOM for bowel motivation Will discuss further with attending 01/13/17 15:15 Potassium is coming down. Her home potassium is on hold. Continues on home Lasix dose of 40 mg BID. Weight is up 5 kg since admission. Creatinine has gradually increased since admission. Defer tx plan to Dr. Hou. Abdominal pain has resolved. No clear etiology for her acute pain was identified. Dr. Hou to talk with family re: her abdominal mass. There apparently has been some confusion on the plan of care. Given her findings on CT, along with her age and cardiac status, she would be a candidate for palliative care. <Flower Hou - Last Filed: 01/13/17 20:49> - Date 01/13/17 Objective Vital signs: Height/Weight/BMI: Results - Labs CBC & Chem 7: 01/13/17 05:21 01/13/17 07:12 Assessment and Plan (1) Uterine mass Problem details: Pending further evaluation with Dr. Elsa Sood Current visit: Yes Status: Acute (2) Diastolic heart failure due to valvular disease Current visit: Yes Status: Acute (3) Sepsis Problem details: of unclear etiology, ? HCAP versus possible GB etiology Current visit: Yes Status: Acute (4) Abdominal pain Problem details: acute, improved with supportive care, epigastric, ? relation to uterine mass versus GB etiology Current visit: Yes Status: Acute Assessment and Plan: I have independently evaluated and examined this patient. I reviewed the chart, the patient's history, and the EDUCATIONAL/DEVELOPMENT ASSISTANT/PA's documented findings as above. We discussed and formulated the assessment and plan as above with additions as below: Mrs. Salas was up in a chair and denies abdominal pain. She denied dyspnea and reports that she's had 2 bowel movements. Recent [facility] records were reviewed extensively. Aortic valve was unremarkable by echocardiogram however she had significant tricuspid regurgitation and coronary artery disease. Admission weight was approximate 70 kg and discharge weight on was around 64 kg. The patient's niece advises me that Dr. Sood does not anticipate surgery feeling it's too risky from a cardiac perspective; [facility] records refer to delaying cardiac stents until after cervical /uterine biopsies are obtained however. I spoke with Dr. Sood and she indicated that she felt a biopsy was purely academic as the patient is not a candidate for major abdominal/pelvic procedure and that whatever she has is clearly going to be something undesirable. Today's weight reported to be 75 kg, cumulative fluid balance since admission + 4.6 L Respirations are nonlabored with decreased inspiratory effort and decreased breath sounds at the bases +2 pitting edema in the thighs and to the mid back. CT from admission reviewed by myself-ascites/anasarca described, I cannot appreciate obstruction of the vena cava by the pelvic mass. Will review with radiology in the morning. Following my conversation with Dr. Sood I contacted the patient's who agreed that the patient would not tolerate a major surgery and would subsequently did not benefit from biopsy. I advised him that the patient is in heart failure and that all the fluid that had been taken off during her prior [place] hospitalization has returned in addition to fluids given on admission here due to lactic acidosis. At this point will focus on diuresing the patient more aggressively; Lasix discontinued and IV Bumex ordered. Monitor renal function. Will discuss further with patient's managing foam charger tomorrow. Will need to discuss whether palliative care/hospice should be entertained with family after discussions with cardiology. 45 minutes spent in patient care in conversations with multiple family members, discussion with Dr. Sood, chart review, and review of CT. Blood cultures remain negative-discontinue antibiotics. Blood sugars elevated-initiate Januvia adjusted for renal function. Previously was on metformin as a single agent but suspicious that metformin triggered lactic acidosis. Additionally DO NOT RESUSCITATE should be discussed tomorrow. Hospital Course Summary Disclaimer: The visit summary below is not to be considered part of the above Progress Note.
[2017-01-13] MEDS: HYDROCODONE/APAP 5mg/325mg TABLET PO PRN (15:38)
[2017-01-13] MEDS ORDERED: FALL RISK - PHARMACY CONSULT XX ONE (15:46)
[2017-01-13] MEDS: PRAVASTATIN 20 MG TABLET PO SCH (20:21)
[2017-01-14] MEDS: INSULIN ASPART 100unit/ml INJECTION SQ PRN ×4 (06:49→21:00)
[2017-01-14] MEDS: FERROUS SULFATE 324 MG TABLET PO SCH ×2 (08:35→17:46)
[2017-01-14] MEDS: ASPIRIN 325 MG TABLET PO SCH (08:35)
[2017-01-14] MEDS: ENOXAPARIN 40 MG/0.4 ML INJECTION SQ SCH (08:36)
[2017-01-14] MEDS: POLYETHYL GLYCOL 3350 17gm PACKET PO SCH (08:36)
[2017-01-14] MEDS: SITAGLIPTIN 100 MG TABLET PO SCH (08:36)
[2017-01-14] MEDS: ACETAMINOPHEN 325 MG TABLET PO PRN (10:30)
[2017-01-14] MEDS: HYDROCODONE/APAP 5mg/325mg TABLET PO PRN ×2 (11:47→22:22)
--- NOTE | 2017-01-14 18:31 | Progress Note ---
- Date 01/14/17 Subjective: Mrs. Salas denied dyspnea or wheezing. She reports a minor cough without sputum production. She had a brief episode of abdominal pain around lunchtime without nausea, it subsided spontaneously and she was able to eat about half of her lunch for her 's report without difficulty. Patient has not been ambulating but is able to transfer with assistance from bed to chair. She denied palpitations or lightheadedness. [place] remains in place. Objective Vital signs: Temperature 96.3 F L 01/14/17 15:34 Pulse Rate 81 01/14/17 15:34 Respiratory Rate 22 01/14/17 15:34 Blood Pressure 108/64 01/14/17 15:34 Pulse Oximetry 97 -2 L 01/14/17 15:34 I/O 750/1450 weight down 1.8 kg EXAM General-NAD, alert, pleasant, very hard of hearing HEENT-conjunctiva clear, sclera anicteric, conjugate gaze Lungs-respirations nonlabored, crackles at the bases bilaterally Cardiac-irregular rhythm, pansystolic murmur along the sternal border Abd-obese, soft, nontender, bowel sounds present Ext-+3 edema bilateral lower extremities extending into the mid back and abdomen Neuro-moves upper extremities normally Psych-pleasant, cooperative - Rhythm: Atrial Fibrillation with Normal Ventricular Rate Height/Weight/BMI: Height 1.63 m Weight 73.2 kg Body Mass Index 26.5 Results - Labs CBC & Chem 7: 01/14/17 04:39 01/14/17 04:39 Labs: Phosphorus 3.8, magnesium 2.5 Assessment and Plan (1) Abdominal pain Problem details: acute, improved with supportive care, epigastric, ? relation to uterine mass versus GB etiology Current visit: Yes Status: Acute (2) Diastolic heart failure due to valvular disease Problem details: Severe tricuspid regurgitation Current visit: Yes Status: Acute (3) Uterine mass Problem details: Pending further evaluation with Dr. Elsa Sood Current visit: Yes Status: Acute (4) Sepsis Problem details: of unclear etiology, ? HCAP versus possible GB etiology Current visit: Yes Status: Acute Assessment and Plan: Assessment Sepsis of unclear etiology; lactic acid 4.1, procalcitonin grossly elevated at admission Acute abdominal pain, improved in ED, unclear if related to GB pathology versus uterine/cervical mass Known CAD with recent cardiac cath 12/[address] Gutiérrez; 2 vessel disease- revascularization planned in future Diastolic HF --> recurrent decompensation overnight 01/10 after modest fluid for sepsis with desaturation, CXR with pulm edema Valvular HD with porcine AVR, severe tricuspid regurgitation Chronic afib, on ASA 325 mg and rate controlled typically Uterine/cervical mass recently diagnosed; Dr. Sood does not anticipate surgical intervention Hyperkalemia -POA Chronic kidney disease Macrocytic anemia-chronic Plan Mrs. Salas is clinically stable without evidence of acute ongoing infectious process. All antibiotics have been discontinued. Suspect presenting lactic acidosis due to metformin. Continue renally at adjusted Januvia and corrective insulin for diabetes. Has diuresed more effectively with conversion from Lasix to Bumex but in doing so renal function has deteriorated slightly. Persistent anasarca-continue diuresis with close monitoring of renal function. Clinical status discussed with Dr. Aguilera today; Dr. Gutiérrez's office also contacted although he was unavailable at the time. In general physicians favor palliative care given nonoperative pelvic mass unless Dr. Gutiérrez has something to offer her cardiac disease. Mr. Salas has decided patient should be converted to DO NOT RESUSCITATE/allow natural given multiple advanced disease processes. Family struggling with discharge options-purely palliative care versus return to fdc with attempts to manage fluid status more effectively and continue physical therapy before returning home. Met with family twice today to discuss results/prognosis/plans and outcome of conversations with other physicians. Case management will follow-up to review options in more detail tomorrow. Resuscitation Status: Do Not Resuscitate - Time spent with patient Time with patient PN: 50 minutes Coordination of Care: >50% of visit spent providing counseling/coordination of care Hospital Course Summary Disclaimer: The visit summary below is not to be considered part of the above Progress Note. Hospital Course: 01/10/17 15:35 [place]--Admission Assessment: Sepsis of unclear etiology; hemodynamics are stable but lactic acid 4.1, procalcitonin grossly elevated At risk for HCAP with recent inpatient admission at [facility] Acute abdominal pain, improved in ED, unclear if related to GB pathology versus uterine/cervical mass Known CAD with recent cardiac cath 12/[address] Gutiérrez Diastolic HF with recent decompensation requiring IV diuresis when admitted in [place] at [facility] Valvular HD with porcine AVR Chronic afib, on ASA 325 mg and rate controlled Uterine/cervical mass recently diagnosed pending biopsy and further w/u with Dr. Sood Plan/Recommendations: Admit to medical floor with telemetry Hold further IVF after 500 cc bolus unless hypotensive Check troponin to ensure no occult cardiac cause of her presentation Broaden antibiotics to vancomycin/zosyn Continue home medications including cardiac medications and diuretics given recent decompensated HF Await final read on CTAP May need to involve Dr. Sood during her inpatient stay for further evaluation of uterine/cervical mass RUQ ultrasound to furthe evaluation GB pathology Add hepatic panel to labs for surveillance Renal panel, CBC, Mg with AM labs Serial lactic acid for monitoring Will return her care to Dr. Angel, PCP, after her hospitalization. 01/11/17 11:46 [place] Continue telemetry today Hold further IVF today and monitor lactic acid levels; trending down, ? metformin versus poor hepatic clearance Await RUQ ultrasound results for further evaluation of liver and GB Hold vanco and levaquin and continue zosyn today for intra-abdominal coverage; no evidence of HCAP on imaging Continue home medications including cardiac medications and diuretics given recent decompensated HF --> will give an additional 20 mg IV lasix today at noon for further diuresis Monitor strict I/Os and daily weight s May need to involve Dr. Sood during her inpatient stay for further evaluation of uterine/cervical mass Renal panel, CBC, Mg with AM labs 01/12/17 Awaiting Abdominal sonogram results for further evaluation. Continue on Zosyn IV for intra-abdominal coverage. Lactate has trended to normal. Was given a one-time dose of Lasix IV yesterday. Given crackles and increased weight, will give another one time dose today. Hyperkalemia noted on labs, although specimen was hemolyzed. We will follow. Hgb decreased to 7.8. Dr Sood was consulted for evaluation of pelvic mass however she does not have Privileges [place] [facility]. Will discuss with attending, consult -vs- Outpt follow up. Add Miralax and MOM for bowel motivation Will discuss further with attending 01/13/17 15:15 Potassium is coming down. Her home potassium is on hold. Weight increasing- Lasix converted to Bumex. Weight is up 5 kg since admission. Creatinine has gradually increased since admission. Defer tx plan to Dr. Hou. Abdominal pain has resolved. No clear etiology for her acute pain was identified. Surgical plans reviewed with Dr. Sood regarding pelvic mass-not believed to be a surgical candidate, biopsy considered academic and not recommended. Given her findings on CT, along with her age and cardiac status, she would be a candidate for palliative care. Cultures remain negative, other than elevated lactic acid no indication of sepsis-antibiotics discontinued. 01/14/17 Mrs. Salas is clinically stable without evidence of acute ongoing infectious process. All antibiotics have been discontinued. Suspect presenting lactic acidosis due to metformin. Continue renally at adjusted Januvia and corrective insulin for diabetes. Has diuresed more effectively with conversion from Lasix to Bumex but in doing so renal function has deteriorated slightly. Persistent anasarca-continue diuresis with close monitoring of renal function. Clinical status discussed with Dr. Aguilera today; Dr. Gutiérrez's office also contacted although he was unavailable at the time. In general physicians favor palliative care given nonoperative pelvic mass unless Dr. Gutiérrez has something to offer her cardiac disease. Mr. Salas has decided patient should be converted to DO NOT RESUSCITATE/allow natural given multiple advanced disease processes. Family struggling with discharge options-purely palliative care versus return to fdc with attempts to manage fluid status more effectively and continue physical therapy before returning home. Case management will follow-up to review options in more detail tomorrow.
[2017-01-14] MEDS: PRAVASTATIN 20 MG TABLET PO SCH (21:00)
[2017-01-14] MEDS: SALINE FLUSH 10ml SYRINGE IVF PRN (21:00)
[2017-01-15] MEDS: INSULIN ASPART 100unit/ml INJECTION SQ PRN ×4 (07:12→20:28)
--- NOTE | 2017-01-15 08:34 | XRay Report ---
INDICATION: heart failure PROCEDURE: CHEST 2-VIEWS UPRIGHT (PA & LAT) Encounter: Initial COMPARISON: January 11, 2017 FINDINGS: Improving aeration of the lungs with residual mild airspace opacity in both lower lobes. Small pleural effusions are stable. No pneumothorax or new infiltrate seen. Heart size and mediastinal contours are stable. Prior sternotomy. Pulmonary vascular congestion has improved. Impression: Improving pulmonary edema with residual pleural effusions and basilar airspace disease. .
[2017-01-15] MEDS: MORPHINE SULFATE 2mg INJECTION IVP PRN ×2 (09:33→20:28)
[2017-01-15] MEDS: SALINE FLUSH 10ml SYRINGE IVF PRN (09:34)
[2017-01-15] MEDS: FERROUS SULFATE 324 MG TABLET PO SCH ×2 (10:22→18:05)
[2017-01-15] MEDS: ENOXAPARIN 40 MG/0.4 ML INJECTION SQ SCH (10:23)
[2017-01-15] MEDS: ASPIRIN 325 MG TABLET PO SCH (10:23)
[2017-01-15] MEDS: SITAGLIPTIN 100 MG TABLET PO SCH (10:24)
[2017-01-15] MEDS ORDERED: BISACODYL 10 MG SUPPOSITORY RECTALLY PRN (10:36)
[2017-01-15] MEDS: POLYETHYL GLYCOL 3350 17gm PACKET PO SCH (10:54)
--- NOTE | 2017-01-15 12:10 | Progress Note ---
- Date 01/15/17 Subjective: Patient was seen at 0830 and was communicating relatively well, answering questions. Said she was doing somewhat better and was up in chair. A few minutes after my visit, the [facility] called because the patient was calling out in pain and grabbing the skin on her left arm and saying it hurt. They reported that a similar episode occurred in the nighttime. After some morphine, the patient's pain decreased and she seemed calmer. Objective Vital signs: Temperature 96.5 F L 01/15/17 07:32 Pulse Rate 80 01/15/17 10:31 Respiratory Rate 20 01/15/17 10:31 Blood Pressure 136/76 01/15/17 10:31 Pulse Oximetry 94 01/15/17 09:29 Rhythm: Atrial Fibrillation with Normal Ventricular Rate Height/Weight/BMI: Height 5 ft 4 in Weight 72.5 kg Body Mass Index 26.5 - Constitutional Present: mild distress - Routine Respiratory Exam Comments: diminished in bases - Routine Cardiovascular Exam Present: RRR, murmur - Routine Abdominal Exam Present: soft, non tender - Routine Extremities Exam Present: edema (up to hips) - Routine Neurological Exam Present: alert, altered mental status Results - Labs CBC & Chem 7: 01/15/17 04:53 01/15/17 04:53 Assessment and Plan (1) Uterine mass Problem details: Pending further evaluation with Dr. Elsa Sood Current visit: Yes Status: Acute (2) Diastolic heart failure due to valvular disease Problem details: Severe tricuspid regurgitation Current visit: Yes Status: Acute (3) Sepsis Problem details: of unclear etiology, ? HCAP versus possible GB etiology Current visit: Yes Status: Acute (4) Abdominal pain Problem details: acute, improved with supportive care, epigastric, ? relation to uterine mass versus GB etiology Current visit: Yes Status: Acute Assessment and Plan: Assessment Sepsis of unclear etiology; lactic acid 4.1, procalcitonin grossly elevated at admission Acute abdominal pain, improved in ED, unclear if related to GB pathology versus uterine/cervical mass Known CAD with recent cardiac cath 12/[address] Gutiérrez; 2 vessel disease- revascularization planned in future Diastolic HF --> recurrent decompensation overnight 01/10 after modest fluid for sepsis with desaturation, CXR with pulm edema Valvular HD with porcine AVR, severe tricuspid regurgitation Chronic afib, on ASA 325 mg and rate controlled typically Uterine/cervical mass recently diagnosed; Dr. Sood does not anticipate surgical intervention Hyperkalemia -POA Chronic kidney disease Macrocytic anemia-chronic Plan Mrs. Salas is clinically stable without evidence of acute ongoing infectious process. All antibiotics have been discontinued. Suspect presenting lactic acidosis due to metformin. Continue renally at adjusted Januvia and corrective insulin for diabetes. Has diuresed more effectively with conversion from Lasix to Bumex but in doing so renal function has deteriorated slightly. Persistent anasarca-continue diuresis with close monitoring of renal function. Will attempt to discuss with Dr. Gutiérrez today In general physicians favor palliative care given nonoperative pelvic mass unless Dr. Gutiérrez has something to offer her cardiac disease. Mr. Salas has decided patient should be converted to DO NOT RESUSCITATE/allow natural given multiple advanced disease processes. Family struggling with discharge options-purely palliative care versus return to senior care with attempts to manage fluid status more effectively and continue physical therapy before returning home. Will continue to discuss with family Stat EKG and troponin negative regarding episode of pain today - seems recurrent and related to something such as hospital delirium, continue to monitor closely. Hospital Course Summary Disclaimer: The visit summary below is not to be considered part of the above Progress Note. Hospital Course: 01/10/17 15:35 [place]--Admission Assessment: Sepsis of unclear etiology; hemodynamics are stable but lactic acid 4.1, procalcitonin grossly elevated At risk for HCAP with recent inpatient admission at [facility] Acute abdominal pain, improved in ED, unclear if related to GB pathology versus uterine/cervical mass Known CAD with recent cardiac cath 12/[address] Gutiérrez Diastolic HF with recent decompensation requiring IV diuresis when admitted in [place] at [facility] Valvular HD with porcine AVR Chronic afib, on ASA 325 mg and rate controlled Uterine/cervical mass recently diagnosed pending biopsy and further w/u with Dr. Sood Plan/Recommendations: Admit to medical floor with telemetry Hold further IVF after 500 cc bolus unless hypotensive Check troponin to ensure no occult cardiac cause of her presentation Broaden antibiotics to vancomycin/zosyn Continue home medications including cardiac medications and diuretics given recent decompensated HF Await final read on CTAP May need to involve Dr. Sood during her inpatient stay for further evaluation of uterine/cervical mass RUQ ultrasound to furthe evaluation GB pathology Add hepatic panel to labs for surveillance Renal panel, CBC, Mg with AM labs Serial lactic acid for monitoring Will return her care to Dr. Angel, PCP, after her hospitalization. 01/11/17 11:46 [place] Continue telemetry today Hold further IVF today and monitor lactic acid levels; trending down, ? metformin versus poor hepatic clearance Await RUQ ultrasound results for further evaluation of liver and GB Hold vanco and levaquin and continue zosyn today for intra-abdominal coverage; no evidence of HCAP on imaging Continue home medications including cardiac medications and diuretics given recent decompensated HF --> will give an additional 20 mg IV lasix today at noon for further diuresis Monitor strict I/Os and daily weight s May need to involve Dr. Sood during her inpatient stay for further evaluation of uterine/cervical mass Renal panel, CBC, Mg with AM labs 01/12/17 Awaiting Abdominal sonogram results for further evaluation. Continue on Zosyn IV for intra-abdominal coverage. Lactate has trended to normal. Was given a one-time dose of Lasix IV yesterday. Given crackles and increased weight, will give another one time dose today. Hyperkalemia noted on labs, although specimen was hemolyzed. We will follow. Hgb decreased to 7.8. Dr Sood was consulted for evaluation of pelvic mass however she does not have Privileges at [facility]. Will discuss with attending, consult -vs- Outpt follow up. Add Miralax and MOM for bowel motivation Will discuss further with attending 01/13/17 15:15 Potassium is coming down. Her home potassium is on hold. Weight increasing- Lasix converted to Bumex. Weight is up 5 kg since admission. Creatinine has gradually increased since admission. Defer tx plan to Dr. Hou. Abdominal pain has resolved. No clear etiology for her acute pain was identified. Surgical plans reviewed with Dr. Sood regarding pelvic mass-not believed to be a surgical candidate, biopsy considered academic and not recommended. Given her findings on CT, along with her age and cardiac status, she would be a candidate for palliative care. Cultures remain negative, other than elevated lactic acid no indication of sepsis-antibiotics discontinued. 01/14/17 Mrs. Salas is clinically stable without evidence of acute ongoing infectious process. All antibiotics have been discontinued. Suspect presenting lactic acidosis due to metformin. Continue renally at adjusted Januvia and corrective insulin for diabetes. Has diuresed more effectively with conversion from Lasix to Bumex but in doing so renal function has deteriorated slightly. Persistent anasarca-continue diuresis with close monitoring of renal function. Clinical status discussed with Dr. Aguilera today; Dr. Gutiérrez's office also contacted although he was unavailable at the time. In general physicians favor palliative care given nonoperative pelvic mass unless Dr. Gutiérrez has something to offer her cardiac disease. Mr. Salas has decided patient should be converted to DO NOT RESUSCITATE/allow natural given multiple advanced disease processes. Family struggling with discharge options-purely palliative care versus return to senior care with attempts to manage fluid status more effectively and continue physical therapy before returning home. Case management will follow-up to review options in more detail tomorrow. 01/15/17 12:20 Mrs. Salas is clinically stable without evidence of acute ongoing infectious process. All antibiotics have been discontinued. Suspect presenting lactic acidosis due to metformin. Continue renally at adjusted Januvia and corrective insulin for diabetes. Has diuresed more effectively with conversion from Lasix to Bumex but in doing so renal function has deteriorated slightly. Persistent anasarca-continue diuresis with close monitoring of renal function. Will attempt to discuss with Dr. Gutiérrez today In general physicians favor palliative care given nonoperative pelvic mass unless Dr. Gutiérrez has something to offer her cardiac disease. Mr. Salas has decided patient should be converted to DO NOT RESUSCITATE/allow natural given multiple advanced disease processes. Family struggling with discharge options-purely palliative care versus return to senior care with attempts to manage fluid status more effectively and continue physical therapy before returning home. Will continue to discuss with family Stat EKG and troponin negative regarding episode of pain today - seems recurrent and related to something such as hospital delirium, continue to monitor closely.
[2017-01-15] MEDS: PRAVASTATIN 20 MG TABLET PO SCH ×2 (20:28→20:46)
[2017-01-16] MEDS: MORPHINE SULFATE 2mg INJECTION IVP PRN ×5 (03:10→22:26)
[2017-01-16] MEDS: INSULIN ASPART 100unit/ml INJECTION SQ PRN (06:25)
[2017-01-16] MEDS: HYDROCODONE/APAP 5mg/325mg TABLET PO PRN (09:20)
[2017-01-16] MEDS: ASPIRIN 325 MG TABLET PO SCH ×2 (09:21→10:52)
[2017-01-16] MEDS: FERROUS SULFATE 324 MG TABLET PO SCH ×3 (09:21→17:52)
[2017-01-16] MEDS: SITAGLIPTIN 100 MG TABLET PO SCH ×2 (09:21→10:52)
[2017-01-16] MEDS: POLYETHYL GLYCOL 3350 17gm PACKET PO SCH (09:22)
[2017-01-16] MEDS: ENOXAPARIN 40 MG/0.4 ML INJECTION SQ SCH (09:22)
--- NOTE | 2017-01-16 10:59 | Progress Note ---
<[place] A - Last Filed: 01/16/17 11:28> - Date 01/16/17 Subjective: Ms. Salas is seen today in follow up for her newly diagnosed abdominal mass, diastolic heart failure, chronic kidney disease, diabetes and chronic a-fib. She is seen while resting in her room. She yells with painful stimuli but will not open her eyes or answer questions. She is noted to be restless in bed, scratching at her arms and moving about. Nursing notified hospitalist service this morning with concerns about increased orbital edema as well as decreased responsiveness as compared to yesterday. Shortly after the call, she was heard screaming but has since settled down. PT attempted to work with patient today but was unable due to her decreased responsiveness. Nursing notes and chart were reviewed. She continues to have very poor oral intake. Nursing reports that they were unable to give her her morning meds. Vital signs are stable though pulse oximetry is noted to be trending down, currently 90% on room air. She does not appear to have any respiratory distress or increased effort for breathing. No cough or congestion noted. No fevers. ROS of systems is limited due to patient not answering questions. Weight remains stable. Labs this morning revealed stable anemia with hemoglobin at 8.6. BMP was relatively unremarkable with slight improvement in SCr at 1.2. Blood sugars relatively well controlled. UA revealed 20-30 RBC with 1+ protein and trace bacteria. NO WBC. Albumin remains low. Objective Vital signs: Temperature 97.8 F 01/15/17 23:00 Pulse Rate 94 01/16/17 07:00 Respiratory Rate 20 01/16/17 07:00 Blood Pressure 106/61 01/16/17 07:00 Pulse Oximetry 90 01/16/17 07:00 Height/Weight/BMI: Height 5 ft 4 in Weight 158 lb 1.143 oz Body Mass Index 26.5 Comments: Patient seen while resting in bed and appears restless, frequently moving about and scratching at arms; decreased responsiveness but does holler out with assessment of legs bilaterally. - Constitutional Present: well developed, somnolent Comments: restless, decreased level of consciousness. - Routine HEENT Exam Head: Present: normocephalic, atraumatic Eye: Present: PERRL ENT: Present: mucous membranes dry Comments: limited exam due to patient's decreased responsiveness; upper lip edema noted bilaterally without erythema, discharge or ecchymosis. - Routine Respiratory Exam Present: decreased breath sounds, crackles (right base). Absent: respiratory distress, rhonchi, stridor, wheezes - Routine Cardiovascular Exam Present: S1, S2, click, irregularly irregular Comments: rate controlled - Routine Abdominal Exam Present: soft, non tender, distended, mass Comments: hypoactive bowel sounds, pitting edema with ascites noted to abdomen. - Routine Extremities Exam Present: edema, full ROM, pulses intact Comments: no edema noted to ankles or feet; pitting edema noted to tibial plateau region as well as upper thigh bilaterally. SCDs in place bilaterally; 2+ pedal pulses bilaterally; patient hollers out with assessment of edema to lower extremities; area of erythema vs. ecchymosis noted to left posterior upper arm without warmth , swelling, wound or red streaking. Scattered areas of skin irritation noted to chest presumably from prior EKG patches which have since been removed; no rash noted. - Routine Back/Spine/Pelvis Exam Back/Spine: Present: full ROM. Absent: vertebral tenderness Comments: patient actively moving around in bed without signs of distress or difficulty. - Routine Musculoskeletal Exam Musculoskeletal: Present: normal strength, moving extremities well - Routine Skin Exam Present: dry, warm. Absent: jaundice Comments: afebrile; areas of skin irritation noted to chest in pattern of EKG patches which have since been removed. - Routine Neurological Exam Present: altered mental status, moving all extremities. Absent: hemineglect patient responds to painful stimuli but does not open eyes or participate in history or physical exam; decreased level of responsiveness. - Routine Psychiatric Exam Present: cooperative Comments: restless, limited assessment. Results - Labs CBC & Chem 7: 01/16/17 04:10 01/16/17 04:10 Assessment and Plan (1) Uterine mass Problem details: Pending further evaluation with Dr. Elsa Sood Current visit: Yes Status: Acute (2) Diastolic heart failure due to valvular disease Problem details: Severe tricuspid regurgitation Current visit: Yes Status: Acute (3) Sepsis Problem details: of unclear etiology, ? HCAP versus possible GB etiology Current visit: Yes Status: Resolved (4) Abdominal pain Problem details: acute, improved with supportive care, epigastric, ? relation to uterine mass versus GB etiology Current visit: Yes Status: Acute Assessment and Plan: Assessment Sepsis of unclear etiology; lactic acid 4.1, procalcitonin grossly elevated at admission Acute abdominal pain, improved in ED, unclear if related to GB pathology versus uterine/cervical mass Known CAD with recent cardiac cath 12/[address] Gutiérrez; 2 vessel disease- revascularization planned in future Diastolic HF --> recurrent decompensation overnight 01/10 after modest fluid for sepsis with desaturation, CXR with pulm edema Valvular HD with porcine AVR, severe tricuspid regurgitation Chronic afib, on ASA 325 mg and rate controlled typically Uterine/cervical mass recently diagnosed; Dr. Sood does not anticipate surgical intervention Hyperkalemia -POA Chronic kidney disease Macrocytic anemia-chronic Plan - 01/16/17 ([place]) Nursing notified hospitalist service with concerns about increased orbital edema with decreased responsiveness. Nursing unable to give morning medications due to poor oral intake and patient unable to participate with PT. She remains clinically stable without evidence of acute ongoing infectious process. All antibiotics have been discontinued. Suspect presenting lactic acidosis due to metformin. Urinary output is adequate and continues to diurese well with Bumex 1mg BID. Overall oral intake is very poor with negative intake balance. Weight remains stable. Albumin low at 2.7. Continue to monitor closely and encourage oral intake. Slight improvement in renal function with SCr decreased to 1.2 and GFR increased to 43. Blood sugars relatively stable. Continue to renally adjust Januvia and SSI as needed. Monitor blood sugars closely, especially give poor oral intake. Persistent anasarca-continue diuresis with close monitoring of renal function. May consider surgical consult for possible paracentesis given ascites. Will discuss treatment wishes with family and adjust treatment plan accordingly. Family struggling with discharge options-purely palliative care versus return to prison with attempts to manage fluid status more effectively and continue physical therapy before returning home. Will continue to discuss with family Mr. Salas previously decided patient should be converted to DO NOT RESUSCITATE and allow natural given multiple advanced disease processes. Consider Ativan and/or Haldol for agitation and restlessness PRN. DVT Prophylaxis: SCD's, Lovenox Resuscitation Status: Do Not Resuscitate - Time spent with patient Time with patient PN: 35 minutes - Physician Narriative Physician: other (Dr. Marianne Atkinson) Hospital Course Summary Disclaimer: The visit summary below is not to be considered part of the above Progress Note. Hospital Course: 01/10/17 15:35 [place]--Admission Assessment: Sepsis of unclear etiology; hemodynamics are stable but lactic acid 4.1, procalcitonin grossly elevated At risk for HCAP with recent inpatient admission at [facility] Acute abdominal pain, improved in ED, unclear if related to GB pathology versus uterine/cervical mass Known CAD with recent cardiac cath 12/[address] Gutiérrez Diastolic HF with recent decompensation requiring IV diuresis when admitted in [place] at [facility] Valvular HD with porcine AVR Chronic afib, on ASA 325 mg and rate controlled Uterine/cervical mass recently diagnosed pending biopsy and further w/u with Dr. Sood Plan/Recommendations: Admit to medical floor with telemetry Hold further IVF after 500 cc bolus unless hypotensive Check troponin to ensure no occult cardiac cause of her presentation Broaden antibiotics to vancomycin/zosyn Continue home medications including cardiac medications and diuretics given recent decompensated HF Await final read on CTAP May need to involve Dr. Sood during her inpatient stay for further evaluation of uterine/cervical mass RUQ ultrasound to furthe evaluation GB pathology Add hepatic panel to labs for surveillance Renal panel, CBC, Mg with AM labs Serial lactic acid for monitoring Will return her care to Dr. Angel, PCP, after her hospitalization. 01/11/17 11:46 [place] Continue telemetry today Hold further IVF today and monitor lactic acid levels; trending down, ? metformin versus poor hepatic clearance Await RUQ ultrasound results for further evaluation of liver and GB Hold vanco and levaquin and continue zosyn today for intra-abdominal coverage; no evidence of HCAP on imaging Continue home medications including cardiac medications and diuretics given recent decompensated HF --> will give an additional 20 mg IV lasix today at noon for further diuresis Monitor strict I/Os and daily weight s May need to involve Dr. Sood during her inpatient stay for further evaluation of uterine/cervical mass Renal panel, CBC, Mg with AM labs 01/12/17 Awaiting Abdominal sonogram results for further evaluation. Continue on Zosyn IV for intra-abdominal coverage. Lactate has trended to normal. Was given a one-time dose of Lasix IV yesterday. Given crackles and increased weight, will give another one time dose today. Hyperkalemia noted on labs, although specimen was hemolyzed. We will follow. Hgb decreased to 7.8. Dr Sood was consulted for evaluation of pelvic mass however she [place] [facility] [place] Will discuss with attending, consult -vs- Outpt follow up. Add Miralax and MOM for bowel motivation Will discuss further with attending 01/13/17 15:15 Potassium is coming down. Her home potassium is on hold. Weight increasing- Lasix converted to Bumex. Weight is up 5 kg since admission. Creatinine has gradually increased since admission. Defer tx plan to Dr. Hou. Abdominal pain has resolved. No clear etiology for her acute pain was identified. Surgical plans reviewed with Dr. Sood regarding pelvic mass-not believed to be a surgical candidate, biopsy considered academic and not recommended. Given her findings on CT, along with her age and cardiac status, she would be a candidate for palliative care. Cultures remain negative, other than elevated lactic acid no indication of sepsis-antibiotics discontinued. 01/14/17 Mrs. Salas is clinically stable without evidence of acute ongoing infectious process. All antibiotics have been discontinued. Suspect presenting lactic acidosis due to metformin. Continue renally at adjusted Januvia and corrective insulin for diabetes. Has diuresed more effectively with conversion from Lasix to Bumex but in doing so renal function has deteriorated slightly. Persistent anasarca-continue diuresis with close monitoring of renal function. Clinical status discussed with Dr. Aguilera today; Dr. Gutiérrez's office also contacted although he was unavailable at the time. In general physicians favor palliative care given nonoperative pelvic mass unless Dr. Gutiérrez has something to offer her cardiac disease. Mr. Salas has decided patient should be converted to DO NOT RESUSCITATE/allow natural given multiple advanced disease processes. Family struggling with discharge options-purely palliative care versus return to prison with attempts to manage fluid status more effectively and continue physical therapy before returning home. Case management will follow-up to review options in more detail tomorrow. 01/15/17 12:20 Mrs. Salas is clinically stable without evidence of acute ongoing infectious process. All antibiotics have been discontinued. Suspect presenting lactic acidosis due to metformin. Continue renally at adjusted Januvia and corrective insulin for diabetes. Has diuresed more effectively with conversion from Lasix to Bumex but in doing so renal function has deteriorated slightly. Persistent anasarca-continue diuresis with close monitoring of renal function. Will attempt to discuss with Dr. Gutiérrez today In general physicians favor palliative care given nonoperative pelvic mass unless Dr. Gutiérrez has something to offer her cardiac disease. Mr. Salas has decided patient should be converted to DO NOT RESUSCITATE/allow natural given multiple advanced disease processes. Family struggling with discharge options-purely palliative care versus return to prison with attempts to manage fluid status more effectively and continue physical therapy before returning home. Will continue to discuss with family Stat EKG and troponin negative regarding episode of pain today - seems recurrent and related to something such as hospital delirium, continue to monitor closely. Plan - 01/16/17 ([place]) Nursing notified hospitalist service with concerns about increased orbital edema with decreased responsiveness. Nursing unable to give morning medications due to poor oral intake and patient unable to participate with PT. She remains clinically stable without evidence of acute ongoing infectious process. All antibiotics have been discontinued. Suspect presenting lactic acidosis due to metformin. Urinary output is adequate and continues to diurese well with Bumex 1mg BID. Overall oral intake is very poor with negative intake balance. Weight remains stable. Albumin low at 2.7. Continue to monitor closely and encourage oral intake. Slight improvement in renal function with SCr decreased to 1.2 and GFR increased to 43. Blood sugars relatively stable. Continue to renally adjust Januvia and SSI as needed. Monitor blood sugars closely, especially give poor oral intake. Persistent anasarca-continue diuresis with close monitoring of renal function. May consider surgical consult for possible paracentesis given ascites. Will discuss treatment wishes with family and adjust treatment plan accordingly. Family struggling with discharge options-purely palliative care versus return to prison with attempts to manage fluid status more effectively and continue physical therapy before returning home. Will continue to discuss with family Mr. Salas previously decided patient should be converted to DO NOT RESUSCITATE and allow natural given multiple advanced disease processes. Consider Ativan and/or Haldol for agitation and restlessness PRN. <Marianne Atkinson M - Last Filed: 01/16/17 11:40> - Date 01/16/17 Objective Vital signs: Temperature 97.8 F 01/15/17 23:00 Pulse Rate 94 01/16/17 07:00 Respiratory Rate 20 01/16/17 07:00 Blood Pressure 106/61 01/16/17 07:00 Pulse Oximetry 90 01/16/17 07:00 Height/Weight/BMI: Height 5 ft 4 in Weight 71.7 kg Body Mass Index 26.5 Results - Labs CBC & Chem 7: 01/16/17 04:10 01/16/17 04:10 Assessment and Plan (1) Uterine mass Problem details: Pending further evaluation with Dr. Elsa Sood Current visit: Yes Status: Acute (2) Diastolic heart failure due to valvular disease Problem details: Severe tricuspid regurgitation Current visit: Yes Status: Acute (3) Sepsis Problem details: of unclear etiology, ? HCAP versus possible GB etiology Current visit: Yes Status: Resolved (4) Abdominal pain Problem details: acute, improved with supportive care, epigastric, ? relation to uterine mass versus GB etiology Current visit: Yes Status: Acute Assessment and Plan: patient seen and evaluated. See above note written by PA who saw the patient today. Patient will not respond to me on exam. She opens her eyes, grumbles, and appears to be in pain when I push her abdomen. She has been crying out in response to being touched or moved the last couple days. Her mental status seems to be deteriorating. She is not taking oral meds or food/drink. Gen: Alert. not responding to questions or following commands HEENT: periorbital edema. PERRL/EOMI. nc/at CV: irregular, RR, + murmur Lungs: diminished at bases ABd: soft, distended, mildly TTP diffusely, + BS, no r/r/g Ext: 1+ pitting edema up to groin bilateral LE Neuro: no focal signs Skin: no new rash Will evaluate volume status with bnp, abdominal US for ascites, and repeat CXR - yesterday pulmonary edema was improved. Evaluate sepsis markers with lactic acid and procacalcitonin to see trend. Get ABG, troponin, and ammonia level for AMS. UA negative for infection yesterday Patient not tolerating telemetry - pulls it off Further treatment pending results of above Will discuss goals of care with family in conjunction with specialists. Hospital Course Summary Disclaimer: The visit summary below is not to be considered part of the above Progress Note.
--- NOTE | 2017-01-16 13:07 | XRay Report ---
Indication: SOA, AMS PROCEDURE: XR chest 1V: Encounter: Initial Comparison: January 15, 2017 Findings: Pulmonary edema has worsened from the prior study with increasing fluid along the minor fissure and increasing pulmonary vascular congestion. Small bilateral pleural effusions are stable. Persistent bilateral lower lobe airspace disease. No pneumothorax. Size and mediastinal contours are stable. Prior sternotomy. Impression: Increasing pulmonary edema. .
--- NOTE | 2017-01-16 13:11 | Ultrasound Report ---
Indication: ascites PROCEDURE: US abdomen limited: Encounter: Initial Comparison: None Technique: Grayscale and color Doppler sonographic imaging of the four abdominal quadrants was performed. Findings/ Impression: Imaging shows small to moderate volume ascites with a large pelvic mass in the right lower quadrant. .
[2017-01-16 15:56] VITALS: BMI 27.1
[2017-01-16] MEDS: HALOPERIDOL 5 MG/ML INJECTION IVP PRN (20:13)
[2017-01-16] MEDS: SALINE FLUSH 10ml SYRINGE IVF PRN (20:15)
[2017-01-16] MEDS: PRAVASTATIN 20 MG TABLET PO SCH (20:15)
[2017-01-16] MEDS: ONDANSETRON 4 MG/2 ML INJECTION IVP PRN (22:26)
[2017-01-17] MEDS: HALOPERIDOL 5 MG/ML INJECTION IVP PRN ×3 (00:26→14:23)
[2017-01-17] MEDS: MORPHINE SULFATE 2mg INJECTION IVP PRN ×5 (00:26→16:55)
[2017-01-17] MEDS: ONDANSETRON 4 MG/2 ML INJECTION IVP PRN (03:43)
[2017-01-17] MEDS: ASPIRIN 325 MG TABLET PO SCH (08:53)
[2017-01-17] MEDS: FERROUS SULFATE 324 MG TABLET PO SCH ×2 (08:53→17:58)
[2017-01-17] MEDS: ENOXAPARIN 40 MG/0.4 ML INJECTION SQ SCH (08:53)
[2017-01-17] MEDS: POLYETHYL GLYCOL 3350 17gm PACKET PO SCH (08:54)
[2017-01-17] MEDS: SITAGLIPTIN 100 MG TABLET PO SCH (08:54)
[2017-01-17 16:03] VITALS: BP 130/75; PULSE 109; RESP 20; TEMP 95.9; O2SAT 95
--- NOTE | 2017-01-17 18:29 | Discharge Summary ---
Discharge Information Date of admission: 01/10/17 14:05 Anticipated date of discharge: 01/17/17 Attending Physician: Flower Hou MD Primary care physician: Frank Bravo Consults: - Discharge Diagnosis (1) Abdominal pain Status: Acute (2) Diastolic heart failure due to valvular disease Status: Acute (3) Sepsis Status: Resolved (4) Uterine mass Status: Chronic (5) Hyperkalemia Status: Acute (6) Atrial fibrillation Status: Chronic (7) Macrocytic anemia Status: Chronic (8) Chronic kidney disease, stage III (moderate) Status: Chronic (9) H/O aortic valve replacement with porcine valve Status: Chronic (10) Diabetes mellitus Status: Chronic - Laboratory Labs: Liver enzymes normal on admission except alkaline phosphatase 208; lipase normal on admission 01/16/17 04:10 01/16/17 04:10 Lactic acid 2.5 with procalcitonin 5.98 on 01/16/17 B12 579 - Microbiology Blood cultures 2 drawn 01/10/17 were negative after 5 days - Radiology Radiology: CT abdomen and pelvis with contrast on 01/10/17: Small bilateral pleural effusions. 7 mm subpleural right middle lobe pulmonary nodule. Heart is enlarged. Subcutaneous edema. Liver is fatty infiltrated. Moderate ascites. The gallbladder is shows a small amount of sludge. The spleen, pancreas and adrenal glands are within normal limits. The kidneys are normal. Bladder is grossly normal. There is a irregular heterogeneously enhancing mass occupying the majority of the pelvis. This appears to arise from the uterus. This measures approximately 13 x 11 x 13 cm in size. There is also an extension of this mass or a separate mass in the area of the cervix seen on axial image #80 measuring 5.8 cm in diameter. No evidence of a bowel obstruction. No obvious omental thickening or nodularity. There are scattered small retroperitoneal nodes present. Bone windows show a 1 cm lytic lesion in the T7 vertebra centrally. Diffuse subcutaneous edema consistent with anasarca. Impression: 1. Large heterogeneous pelvic mass or masses suspicious for carcinoma that could be arising from the uterus, endometrium or cervix. Ovarian malignancy is also possible. There is diffuse ascites raising concern for peritoneal metastatic disease. There is also a pulmonary nodule and bone lesion that could represent other sites of metastatic disease. Oncology evaluation is recommended. 2. Anasarca Chest x-ray (portable) on 01/11/17: Congestive heart failure with increased vascular markings; cannot exclude pneumonia, aspiration, or atelectasis at the lung bases. Repeat chest x-ray on 01/15 showed improvement in CHF but worsening was seen on 01/16. Abdominal ultrasound on 01/12/17: The gallbladder is thin-walled and nondistended with mobile echogenic gallstones. CBD is normal measuring 4.2 mm. No sonographic Terrazas's sign. The pancreas is largely obscured by bowel gas. Visualized portions of the pancreas are unremarkable. The liver is homogeneous in echotexture without focal abnormality. Color flow Doppler imaging confirms flow within the portal vein is in the appropriate direction.. The IVC is unremarkable. The hepatic veins are patent. There is a small amount of relatively simple appearing ascites. The right kidney is unremarkable measuring 9.5 cm in length. IMPRESSION: Small amount of simple ascites. Cholelithiasis without evidence for cholecystitis. Abdominal ultrasound was repeated on 01/16 demonstrating small to moderate volume ascites in addition to large pelvic mass. History of Present Illness HPI: Anel Salas is a [facility] 86-year-old woman known to have CAD s/p recent cardiac cath when inpatient at [facility] with diffuse CAD noted and plans for future intervention, valvular heart disease s/p porcine aortic valve, afib, diastolic heart failure with recent exacerbation requiring aggressive inpatient diuresis at [facility] from 12/26-01.01 as well as a known uterine mass undergoing w/u with Dr. Elsa Sood. The patient is a very poor historian due to significant hearing loss and confusion. She is able to answer simple questions for me but cannot provide much history. I did extensively review her available records in the [facility] system from her recent admission. Per patient report, she has not yet had a biopsy done on her uterine mass although that is planned in the near future. She was brought in by EMS for acute onset of severe abdominal pain around 1130 am. She is feeling better now although still has some epigastric tenderness. She denies vomiting but did have some nausea. She has been residing at [facility] for U care since 01/01 when she discharged from [facility]. Her initial labs demonstrate a normal WBC but procalcitonin is elevated at 4.99 and despite stable hemodynamics her lactic acid returned at 4.1. Of note, she is diabetic and has been on metformin. She received a dose of IV levaquin in the ED as well as 500 cc saline bolus. She states her breathing has been stable since leaving the hospital, she has been eating and drinking normally. She denies chest pain, dyspnea, fevers, chills although when she exerts herself she does become dyspneic. [facility] records reviewed from recent admission and cardiac cath 12/30/2016 Catheterization Left Heart with Coronary Post-Op Diagnosis: MARIA VICTORIA Primary Surgeon: Wai Gutiérrez MD (Surgeon - Primary) Ict Analyst: Hannha Estimated Blood Loss: minimal Specimens: none Findings: 1- mod/sev mid LAD disease 2- severe mid diagonal disease 3- severe prox LPDA disease 4- severe prox OM1 disease 5 - EF 65% 6- mean gradient through AV 20mm Hg Hospital Course This is a general summary of the patient's hospital course. For more details refer to the complete medical record. Hospital course: Assessment Sepsis of unclear etiology; lactic acid 4.1, procalcitonin grossly elevated at admission Acute abdominal pain, improved in ED, unclear if related to GB pathology versus uterine/cervical mass Known CAD with recent cardiac cath 12/[address] Gutiérrez; 2 vessel disease- revascularization planned in future Diastolic HF --> recurrent decompensation overnight 01/10 after modest fluid for sepsis with desaturation, CXR with pulm edema Valvular HD with porcine AVR, severe tricuspid regurgitation Chronic afib, on ASA 325 mg and rate controlled typically Uterine/cervical mass recently diagnosed; Dr. Sood does not anticipate surgical intervention Hyperkalemia -POA Chronic kidney disease Macrocytic anemia-chronic; normal B-12 level Hospital course Mrs. Salas was admitted with abdominal pain and laboratory data consistent with severe sepsis/septic shock. Protocol for sepsis of unknown origin was initiated with triple antibiotics and fluid boluses were given in the emergency room although full 30 mL/kg bolus was not given due to known history CHF. The patient was not hypotensive on admission and had only brief drop in blood pressure early on 01/11 after which blood pressures normalized or were high. Metformin was held due to presenting lactic acidosis although procalcitonin suggested bacterial infection. Subsequent evaluation did not reveal source for infection and antibiotics were progressively narrowed and discontinued after total of 5 days. Lactic acid trended down slowly although was up again somewhat prior to discharge. Patient had significant edema on examination on admission and weight was up compared to discharge weight from [facility]. With initial fluids given for sepsis weight climbed further and there was associated hypoxia requiring supplemental oxygen through much of the early hospitalization. Patient was switched from Lasix to Bumex to diuresed more effectively. By discharge fluid balance was even and weight was slightly below admission weight. Patient was maintaining virtually no oral intake at discharge and diuretics were on hold as a result. Large pelvic mass has been previously identified in the pelvis for which patient has been evaluated by [facility]. It was learned that no further evaluation of the mass is anticipated due to patient's underlying functional status/cardiac disease. After extensive evaluations with the patient's outpatient physicians and family members a DO NOT RESUSCITATE/allow natural order was written on 01/14. Given that the pelvic mass is likely a malignancy and patient's poor prognosis due to multiple underlying chronic diseases family elected to consult hospice. Over subsequent days the patient's mental status deteriorated followed by impaired oral intake. Family opted to take the patient home for terminal care with hospice support. Discharge was coordinated for 01/16 after [facility] was able to deliver necessary equipment. On the date of discharge the patient was nonverbal other than occasionally moaning or calling out. She did not respond to questions. Nursing reported that she was restless overnight and required morphine and Haldol to control symptoms. Family was not present throughout the day. Oxygen saturation 93% on room air, respirations were nonlabored with improved air flow on the right relative to the left, cardiac rhythm is irregular. Discharged home with supportive hospice care. Majority of medications on hold as patient is unable to take oral regimen at discharge. Time spent with patient: discharge greater than 30 minutes Discharge Plan - Med Rec/Dispo Prescriptions: New Milk of Magnesia [Mom] 30 ml PO DAILY PRN udc PRN Reason: Constipation Bisacodyl Supp [Dulcolax] 10 mg RECTALLY DAILY PRN suppositor PRN Reason: Constipation Bisacodyl EC TAB [Dulcolax] 5 mg PO DAILY PRN tab PRN Reason: Constipation Continue Acetaminophen [Acetaminophen Extra Strength] 500 mg PO Q4H PRN PRN Reason: Pain Acetaminophen [Tylenol Arthritis] 650 mg PO TID Discontinued Metoprolol Tartrate [Lopressor] 50 mg PO BID Metformin [Glucophage] 1,000 mg PO DAILY Aspirin 325 mg PO DAILY Pravastatin [Pravachol] 20 mg PO DAILY Furosemide [Lasix] 40 mg PO BID Loperamide [Imodium] 2 mg PO TID PRN PRN Reason: Diarrhea Ferrous Sulfate [Iron] 325 mg PO BID Metformin [Glucophage] 500 mg PO HS Hydrocodone/APAP 5/325 [[place] 5/325] 1 tab PO Q8H PRN PRN Reason: Pain Potassium Chloride 10 meq PO BID - Disposition 50 Discharged To Hospice-Home
== END 2017-01-17 17:45 | disposition hospice, home (50) | DRG 871 ==
LOC: ED 11:51 → SUATTDRO 14:05 → MED 14:05
PROVIDERS: ADMIT Internal Medicine; ATTEND Internal Medicine